=== PATIENT | male | born 1975 | race Caucasian/White ===

== ENCOUNTER → 2019-10-05 | Outpatient (REF) | payer OTHER ==
[2019-10-05 13:31] LABS: ALBUMIN 4.1 GM/DL (3.2-5.2); ALT/SGPT 38 U/L (12-78); BILIRUBIN,TOTAL 0.7 MG/DL (0.2-1.0); BLOOD UREA NITROGEN 11 MG/DL (7-18); CALCIUM LEVEL 9.6 MG/DL (8.5-10.1); CARBON DIOXIDE LEVEL 26 MEQ/L (21-32); CHLORIDE LEVEL 103 MEQ/L (98-107); CHOLESTEROL LEVEL 211 MG/DL (<200); CHOLESTEROL RISK RATIO 6.205 (<5); CREATININE FOR GFR 1.18 MG/DL (0.70-1.30); FREE T4 0.99 NG/DL (0.76-1.46); GLOMERULAR FILTRATION RATE > 60.0 (>60); GLUCOSE, FASTING 106 MG/DL (70-100); HDL CHOLESTEROL 34 MG/DL (>40); LDL CHOLESTEROL 133 MG/DL (<100); NON-HDL-C 177 MG/DL; POTASSIUM SERUM 4.8 MEQ/L (3.5-5.1); SODIUM LEVEL 135 MEQ/L (136-145); TOTAL 25(OH) VITAMIN D 17.8 NG/ML (30.0-100.0); TOTAL PROTEIN 8.6 GM/DL (6.4-8.2); TRIGLYCERIDES LEVEL 220 MG/DL (<150); URIC ACID 7.4 MG/DL (3.5-7.2)
== END ==
LOC: M SFHCPLAZ 09:41
PROVIDERS: ATTEND Nurse Practitioner Family
DX: F32.9 Major depressive disorder, single episode, unspecified (principal); E66.9 Obesity, unspecified; M25.50 Pain in unspecified joint

== ENCOUNTER → 2019-10-16 | Outpatient (REF) | payer OTHER | LOC: M LAB REF 17:13 | PROVIDERS: ATTEND Dermatology | DX: L98.6 Other infiltrative disorders of the skin and subcutaneous tissue (principal); L30.9 Dermatitis, unspecified ==

== ENCOUNTER → 2020-05-20 | Outpatient (REF) | payer OTHER ==
[2020-05-20 16:13] LABS: ALT/SGPT 48 U/L (12-78); BILIRUBIN,TOTAL 0.8 MG/DL (0.2-1.0); BLOOD UREA NITROGEN 13 MG/DL (7-18); CALCIUM LEVEL 9.9 MG/DL (8.5-10.1); CARBON DIOXIDE LEVEL 31 MEQ/L (21-32); CHLORIDE LEVEL 102 MEQ/L (98-107); CREATININE FOR GFR 1.31 MG/DL (0.70-1.30); GLOMERULAR FILTRATION RATE > 60.0 (>60); GLUCOSE, FASTING 88 MG/DL (70-100); POTASSIUM SERUM 4.6 MEQ/L (3.5-5.1); SODIUM LEVEL 135 MEQ/L (136-145); TOTAL PROTEIN 8.1 GM/DL (6.4-8.2); URIC ACID 6.8 MG/DL (3.5-7.2)
[2020-05-20 16:19] LABS: TOTAL 25(OH) VITAMIN D 27.4 NG/ML (30.0-100.0)
== END ==
LOC: M PLALAB 11:51
PROVIDERS: ATTEND Nurse Practitioner Family
DX: R73.01 Impaired fasting glucose (principal); E79.0 Hyperuricemia without signs of inflammatory arthritis and tophaceous disease; E55.9 Vitamin D deficiency, unspecified

== ENCOUNTER → 2020-12-10 | Outpatient (REF) | payer OTHER ==
[2020-12-10 14:04] LABS: ALBUMIN 4.3 GM/DL (3.2-5.2); ALT/SGPT 43 U/L (12-78); BILIRUBIN,TOTAL 0.7 MG/DL (0.2-1.0); BLOOD UREA NITROGEN 15 MG/DL (7-18); CALCIUM LEVEL 9.7 MG/DL (8.5-10.1); CARBON DIOXIDE LEVEL 29 MEQ/L (21-32); CHLORIDE LEVEL 105 MEQ/L (98-107); CHOLESTEROL LEVEL 252 MG/DL (<200); CHOLESTEROL RISK RATIO 5.142 (<5); CREATININE FOR GFR 1.18 MG/DL (0.70-1.30); FREE T4 0.97 NG/DL (0.76-1.46); GLOMERULAR FILTRATION RATE > 60.0 (>60); GLUCOSE, FASTING 85 MG/DL (70-100); HDL CHOLESTEROL 49 MG/DL (>40); LDL CHOLESTEROL 165 MG/DL (<100); NON-HDL-C 203 MG/DL; POTASSIUM SERUM 4.5 MEQ/L (3.5-5.1); SODIUM LEVEL 140 MEQ/L (136-145); TOTAL PROTEIN 8.4 GM/DL (6.4-8.2); TRIGLYCERIDES LEVEL 189 MG/DL (<150); URIC ACID 7.8 MG/DL (3.5-7.2)
[2020-12-10 14:06] LABS: TOTAL 25(OH) VITAMIN D 28.4 NG/ML (30.0-100.0)
== END ==
LOC: M PLALAB 11:16
PROVIDERS: ATTEND Nurse Practitioner Family
DX: E78.2 Mixed hyperlipidemia (principal); F32.9 Major depressive disorder, single episode, unspecified; E79.0 Hyperuricemia without signs of inflammatory arthritis and tophaceous disease; E55.9 Vitamin D deficiency, unspecified

== ENCOUNTER → 2021-05-07 | Outpatient (CLI) | payer OTHER ==
--- NOTE | 2021-05-08 15:14 | SLEEPCENT ---
DATE: 05/07/2021 ORDERED BY: Carl Knight MD Nocturnal polysomnography was performed for evaluation of sleep physiology. Eight hours and 45 minutes of data were reviewed. There were 367 minutes of sleep identified. Sleep latency was prolonged at 64.5 minutes. REM latency was also prolonged at 190 minutes. Sleep architecture showed poor progression, periods of wake and some fragmentation early in the study. Overall sleep efficiency was 70.7%. The electrocardiogram showed a sinus rhythm with an average heart rate of 68 beats per minute. EEG showed some minor alpha intrusion and normal waveforms for wake and sleep. There were 89 respiratory events identified of 10 seconds in duration or greater for an apnea-hypopnea index of 14.6. The events were obstructive, not exclusive to sleep stage, more frequent but not exclusive to the supine posture. Arousals from respiratory events occurred 2.8 times per hour, and oxygen desaturations were seen below 90%. There was some activity in the limb leads but arousals from limb events were few. IMPRESSION: Obstructive sleep apnea syndrome (G47.33). Apnea-hypopnea index 14.6. RECOMMENDATION: The patient should be encouraged to return to [facility] for [facility]. In the interim, alcohol and sedative avoidance should be practiced and caution exercised during the operation of motor vehicles.
== END ==
LOC: M SLEEP 20:00
PROVIDERS: ATTEND Family Medicine
DX: G47.33 Obstructive sleep apnea (adult) (pediatric) (principal)

== ENCOUNTER → 2021-07-16 | Outpatient (CLI) | payer OTHER | LOC: M SOG 11:08 | PROVIDERS: ATTEND Orthopaedic Surgery Adult Reconstructive Orthopaedic Surgery | DX: M25.569 Pain in unspecified knee (principal) ==

== ENCOUNTER → 2021-07-22 | Outpatient (CLI) | payer OTHER | LOC: M RAD 08:55 | PROVIDERS: ATTEND Orthopaedic Surgery Adult Reconstructive Orthopaedic Surgery | DX: M23.91 Unspecified internal derangement of right knee (principal) ==

== ENCOUNTER → 2021-07-23 | Outpatient (CLI) | payer OTHER | LOC: M SOG 11:23 | PROVIDERS: ATTEND Orthopaedic Surgery | DX: M54.50 Low back pain, unspecified (principal) ==

== ENCOUNTER → 2021-08-08 | Outpatient (CLI) | payer OTHER | LOC: M PLAIMG 11:17 | PROVIDERS: ATTEND Family Medicine | DX: M54.16 Radiculopathy, lumbar region (principal) ==

== ENCOUNTER → 2021-08-20 | Outpatient (CLI) | payer OTHER | LOC: M SOG 08:12 | PROVIDERS: ATTEND Orthopaedic Surgery Hand Surgery | DX: M25.751 Osteophyte, right hip (principal) ==

== ENCOUNTER → 2021-09-02 | Outpatient (CLI) | payer OTHER | LOC: M PLAIMG 12:37 | PROVIDERS: ATTEND Orthopaedic Surgery Hand Surgery | DX: M25.571 Pain in right ankle and joints of right foot (principal) ==

== ENCOUNTER → 2021-11-04 | Outpatient (REF) | payer OTHER ==
[2021-11-04 13:17] LABS: APPEARANCE, URINE CLEAR (CLEAR); BACTERIA, URINE AUTO NEGATIVE (NEGATIVE); BILIRUBIN, URINE AUTO NEGATIVE (NEGATIVE); BLOOD, URINE BLOOD 1+ (NEGATIVE); COLOR, URINE YELLOW (YELLOW); GLUCOSE, URINE (UA) AUTO NEGATIVE (NEGATIVE); KETONE, URINE AUTO NEGATIVE (NEGATIVE); LEUKOCYTE ESTERASE, URINE AUTO NEGATIVE (NEGATIVE); MUCUS, URINE SMALL (NEGATIVE); NITRITE, URINE AUTO NEGATIVE (NEGATIVE); PROTEIN, URINE AUTO NEGATIVE (NEGATIVE); RBC, URINE AUTO 0 /HPF (0-3); SPECIFIC GRAVITY URINE AUTO 1.017 (1.002-1.035); SQUAMOUS EPITHELIAL CELL UR AU 0 /HPF (0-6); UROBILINOGEN, URINE AUTO 0.2 mg/dL (0.0-2.0); WBC, URINE AUTO 0 /HPF (0-3)
[2021-11-04 13:18] LABS: BASO # 0.1 10^3/uL (0.0-0.2); BASO % 1.3 % (0.0-1.0); EOS # 0.3 10^3/uL (0.0-0.5); EOS % 5.4 % (0.0-3.0); HEMATOCRIT 47.9 % (42.0-52.0); HEMOGLOBIN 16.4 g/dl (13.5-17.5); LYMPH # 1.9 10^3/uL (1.5-5.0); LYMPH % 30.5 % (24.0-44.0); MEAN CORPUSCULAR HEMOGLOBIN 31.2 pg (27.0-33.0); MEAN CORPUSCULAR HGB CONC 34.2 g/dl (32.0-36.5); MEAN CORPUSCULAR VOLUME 91.2 fl (80.0-96.0); MONO # 0.6 10^3/uL (0.0-0.8); MONO % 10.2 % (2.0-8.0); NEUTROPHILS # 3.3 10^3/uL (1.5-8.5); NEUTROPHILS % 52.3 % (36.0-66.0); PLATELET COUNT, AUTOMATED 246 10^3/uL (150-450); RED BLOOD COUNT 5.25 10^6/uL (4.30-6.10); WHITE BLOOD COUNT 6.3 10^3/uL (4.0-10.0)
[2021-11-04 13:43] LABS: TOTAL PROTEIN,RANDOM URINE 9.9 MG/DL (0.0-12.0)
[2021-11-04 13:47] LABS: ALBUMIN 4.2 GM/DL (3.2-5.2); ALT/SGPT 89 U/L (12-78); BILIRUBIN,TOTAL 0.4 MG/DL (0.2-1.0); BLOOD UREA NITROGEN 15 MG/DL (7-18); C REACTIVE PROTEIN QUANTITATIV 0.41 MG/DL (0.00-0.30); CALCIUM LEVEL 10.1 MG/DL (8.5-10.1); CARBON DIOXIDE LEVEL 26 MEQ/L (21-32); CHLORIDE LEVEL 106 MEQ/L (98-107); COMPLEMENT C3 113 MG/DL (90-180); COMPLEMENT C4 28 MG/DL (10-40); CREATININE FOR GFR 1.07 MG/DL (0.70-1.30); GLOMERULAR FILTRATION RATE > 60.0 (>60); GLUCOSE, FASTING 100 MG/DL (70-100); POTASSIUM SERUM 4.1 MEQ/L (3.5-5.1); SODIUM LEVEL 139 MEQ/L (136-145); TOTAL PROTEIN 8.4 GM/DL (6.4-8.2); URIC ACID 6.2 MG/DL (3.5-7.2)
[2021-11-04 13:52] LABS: ERYTHROCYTE SEDIMENTATION RATE 10 mm/hr (0-15)
[2021-11-04 13:54] LABS: TOTAL 25(OH) VITAMIN D 45.7 NG/ML (30.0-100.0)
== END ==
LOC: M SFHCRHEU 09:14
PROVIDERS: ATTEND Internal Medicine Rheumatology
DX: R76.8 Other specified abnormal immunological findings in serum (principal); M25.50 Pain in unspecified joint; R21 Rash and other nonspecific skin eruption; M1A.49X0 Other secondary chronic gout, multiple sites, without tophus (tophi)

== ENCOUNTER → 2021-12-29 | Outpatient (CLI) | payer OTHER ==
[2021-12-29 19:03] LABS: FREE T4 0.84 NG/DL (0.76-1.46); THYROID STIMULATING HORMONE 1.97 uIU/ML (0.358-3.740)
[2021-12-29 19:50] LABS: TOTAL 25(OH) VITAMIN D 94.6 NG/ML (30.0-100.0)
[2021-12-29 19:51] LABS: FOLATE 9.3 NG/ML
== END ==
LOC: M PLALAB 12:28
PROVIDERS: ATTEND Psychiatry & Neurology Neurology
DX: R51.9 Headache, unspecified (principal)

== ENCOUNTER → 2021-12-29 | Outpatient (CLI) | payer OTHER | LOC: M PLAIMG 12:59 | PROVIDERS: ATTEND Internal Medicine Rheumatology | DX: R76.8 Other specified abnormal immunological findings in serum (principal); M25.50 Pain in unspecified joint; R21 Rash and other nonspecific skin eruption; M1A.49X0 Other secondary chronic gout, multiple sites, without tophus (tophi); Z79.899 Other long term (current) drug therapy ==

== ENCOUNTER → 2022-02-04 | Outpatient (CLI) | payer OTHER | LOC: M PAIN 14:30 | PROVIDERS: ATTEND Nurse Practitioner Family | DX: M51.16 Intervertebral disc disorders with radiculopathy, lumbar region (principal); F32.A Depression, unspecified; F41.9 Anxiety disorder, unspecified; F43.10 Post-traumatic stress disorder, unspecified; E29.1 Testicular hypofunction; Z87.820 Personal history of traumatic brain injury; L93.0 Discoid lupus erythematosus; M10.9 Gout, unspecified; E78.00 Pure hypercholesterolemia, unspecified; M25.579 Pain in unspecified ankle and joints of unspecified foot; M25.569 Pain in unspecified knee; M54.2 Cervicalgia; Z87.891 Personal history of nicotine dependence; Z79.891 Long term (current) use of opiate analgesic; Z79.899 Other long term (current) drug therapy; Z91.030 Bee allergy status ==

== ENCOUNTER → 2022-06-07 | Outpatient (CLI) | payer OTHER | LOC: M LABSMTC 11:10 | PROVIDERS: ATTEND Anesthesiology | DX: Z11.52 Encounter for screening for COVID-19 (principal) ==

== ENCOUNTER → 2022-06-11 | Outpatient (CLI) | payer OTHER ==
[~2022-06-11] MED LIST: ISOVUE-M 300 61% 15ML VIAL As Ordered ONE; LIDOCAINE 1% SDV 30ML VIAL As Ordered ONE; diazePAM 5MG TABLET As Ordered ONE; methylPREDNISolone SUSP 40MG/ML 1ML VIAL (DEPO MEDROL) As Ordered ONE
== END ==
LOC: M PAIN 08:15
PROVIDERS: ATTEND Anesthesiology
DX: M51.16 Intervertebral disc disorders with radiculopathy, lumbar region (principal); G89.29 Other chronic pain; G47.30 Sleep apnea, unspecified; Z86.59 Personal history of other mental and behavioral disorders; Z87.820 Personal history of traumatic brain injury; Z87.891 Personal history of nicotine dependence; Z91.030 Bee allergy status; Z79.899 Other long term (current) drug therapy
CPT/HCPCS: 62323; J1030; Q9967

== ENCOUNTER → 2022-07-16 | Outpatient (CLI) | payer OTHER | LOC: M PAIN 11:15 | PROVIDERS: ATTEND Nurse Practitioner Family | DX: G89.29 Other chronic pain (principal); M47.816 Spondylosis without myelopathy or radiculopathy, lumbar region; F32.A Depression, unspecified; F41.9 Anxiety disorder, unspecified; F43.10 Post-traumatic stress disorder, unspecified; E29.1 Testicular hypofunction; Z87.820 Personal history of traumatic brain injury; M54.2 Cervicalgia; R51.9 Headache, unspecified; L93.0 Discoid lupus erythematosus; M54.50 Low back pain, unspecified; M10.9 Gout, unspecified; E78.00 Pure hypercholesterolemia, unspecified; M25.569 Pain in unspecified knee; M25.579 Pain in unspecified ankle and joints of unspecified foot; Z87.891 Personal history of nicotine dependence; Z79.899 Other long term (current) drug therapy; Z91.030 Bee allergy status ==

== ENCOUNTER → 2022-07-22 | Outpatient (CLI) | payer OTHER | LOC: M RAD 11:52 | PROVIDERS: ATTEND Dermatology | DX: L92.3 Foreign body granuloma of the skin and subcutaneous tissue (principal) ==

== ENCOUNTER → 2022-11-02 | Outpatient (CLI) | payer OTHER ==
[~2022-11-02] MED LIST changes: +BUPIVACAINE HCL 0.25% 30ML VIAL As Ordered ONE; -diazePAM 5MG TABLET As Ordered ONE; -methylPREDNISolone SUSP 40MG/ML 1ML VIAL (DEPO MEDROL) As Ordered ONE
== END ==
LOC: M PAIN 09:00
PROVIDERS: ATTEND Anesthesiology
DX: M47.816 Spondylosis without myelopathy or radiculopathy, lumbar region (principal); M47.817 Spondylosis without myelopathy or radiculopathy, lumbosacral region; F32.A Depression, unspecified; F41.9 Anxiety disorder, unspecified; F43.10 Post-traumatic stress disorder, unspecified; E29.1 Testicular hypofunction; Z87.820 Personal history of traumatic brain injury; L93.0 Discoid lupus erythematosus; M54.50 Low back pain, unspecified; M10.9 Gout, unspecified; E78.00 Pure hypercholesterolemia, unspecified; Z87.891 Personal history of nicotine dependence; Z79.891 Long term (current) use of opiate analgesic; Z79.899 Other long term (current) drug therapy; Z91.030 Bee allergy status; J30.81 Allergic rhinitis due to animal (cat) (dog) hair and dander; J30.89 Other allergic rhinitis
CPT/HCPCS: 64493; 64494; Q9967

== ENCOUNTER → 2023-01-08 | Outpatient (REF) | payer OTHER | LOC: CANPREREF → M SFHCDERM 17:24 | PROVIDERS: ATTEND Dermatology | DX: D48.9 Neoplasm of uncertain behavior, unspecified (principal) ==

== ENCOUNTER → 2023-01-19 | Outpatient (CLI) | payer OTHER ==
[~2023-01-19] MED LIST changes: -BUPIVACAINE HCL 0.25% 30ML VIAL As Ordered ONE
== END ==
LOC: M PAIN 13:00
PROVIDERS: ATTEND Anesthesiology
DX: M43.06 Spondylolysis, lumbar region (principal); F32.A Depression, unspecified; F41.9 Anxiety disorder, unspecified; F43.10 Post-traumatic stress disorder, unspecified; M47.816 Spondylosis without myelopathy or radiculopathy, lumbar region; E29.1 Testicular hypofunction; Z87.820 Personal history of traumatic brain injury; L93.0 Discoid lupus erythematosus; M54.50 Low back pain, unspecified; M10.9 Gout, unspecified; E78.00 Pure hypercholesterolemia, unspecified; Z87.891 Personal history of nicotine dependence; Z91.040 Latex allergy status; J30.81 Allergic rhinitis due to animal (cat) (dog) hair and dander; J30.89 Other allergic rhinitis; Z79.891 Long term (current) use of opiate analgesic; Z79.899 Other long term (current) drug therapy
CPT/HCPCS: 64493; 64494; J0665; Q9967

== ENCOUNTER → 2023-01-27 | Outpatient (CLI) | payer OTHER | LOC: M PAIN 14:30 | PROVIDERS: ATTEND Anesthesiology | DX: M99.03 Segmental and somatic dysfunction of lumbar region (principal); F32.A Depression, unspecified; F41.9 Anxiety disorder, unspecified; F43.10 Post-traumatic stress disorder, unspecified; E29.1 Testicular hypofunction; L93.0 Discoid lupus erythematosus; J30.89 Other allergic rhinitis; J30.81 Allergic rhinitis due to animal (cat) (dog) hair and dander; M54.50 Low back pain, unspecified; M10.9 Gout, unspecified; E78.00 Pure hypercholesterolemia, unspecified; M54.2 Cervicalgia; R51.9 Headache, unspecified; Z87.891 Personal history of nicotine dependence; Z79.891 Long term (current) use of opiate analgesic; Z87.820 Personal history of traumatic brain injury; Z91.030 Bee allergy status ==

== ENCOUNTER → 2023-02-15 | Outpatient (CLI) | payer OTHER | LOC: M SOG 08:02 | PROVIDERS: ATTEND Orthopaedic Surgery | DX: M25.561 Pain in right knee (principal); M25.562 Pain in left knee ==

== ENCOUNTER → 2023-07-27 | Outpatient (CLI) | payer OTHER | LOC: M PAIN 11:30 | PROVIDERS: ATTEND Nurse Practitioner Family | DX: M47.816 Spondylosis without myelopathy or radiculopathy, lumbar region (principal); M47.817 Spondylosis without myelopathy or radiculopathy, lumbosacral region; G89.29 Other chronic pain; F32.A Depression, unspecified; F41.9 Anxiety disorder, unspecified; F43.10 Post-traumatic stress disorder, unspecified; E29.1 Testicular hypofunction; Z87.820 Personal history of traumatic brain injury; M10.9 Gout, unspecified; E78.00 Pure hypercholesterolemia, unspecified; G47.33 Obstructive sleep apnea (adult) (pediatric); L93.0 Discoid lupus erythematosus; Z87.891 Personal history of nicotine dependence; Z79.891 Long term (current) use of opiate analgesic; Z79.899 Other long term (current) drug therapy; Z91.030 Bee allergy status ==

== ENCOUNTER 2023-08-16 09:10 | Day surgery (SDC) | payer OTHER ==
[~2023-08-16] VITALS: Ht 180.3 cm; Wt 116.0 kg
[~2023-08-16 09:10] MED LIST changes: +CETI-24 PO; +EPIN0.3I11; +ERGO500029 PO; +FAMO40TA3 PO; -ISOVUE-M 300 61% 15ML VIAL As Ordered ONE; -LIDOCAINE 1% SDV 30ML VIAL As Ordered ONE; +LIDOCAINE 2% 100MG/5ML SDV (FOR ANES.) As Ordered ONE; +SUMA100T2 PO; +TEST75GE; +TOPI100T9 PO; +VENL75CA47 PO; +propofoL 200 MG/20 ML VIAL As Ordered ONE
[2023-08-16] MEDS: NS 1,000 ML IV ONE (09:34)
[2023-08-16 10:46] VITALS: TEMP 97.4
[2023-08-16 11:12] VITALS: BP 115/68; O2SAT 99
== END 2023-08-16 11:24 | disposition home or self-care (01) ==
LOC: M OPP 09:10
PROVIDERS: ATTEND Internal Medicine Gastroenterology
DX: Z12.11 Encounter for screening for malignant neoplasm of colon (principal); D12.6 Benign neoplasm of colon, unspecified; K64.4 Residual hemorrhoidal skin tags; K64.8 Other hemorrhoids; G47.30 Sleep apnea, unspecified; Z99.89 Dependence on other enabling machines and devices; Z79.899 Other long term (current) drug therapy; Z91.030 Bee allergy status

== ENCOUNTER → 2024-02-18 | Outpatient (CLI) | payer OTHER ==
[~2024-02-18] MED LIST changes: -LIDOCAINE 2% 100MG/5ML SDV (FOR ANES.) As Ordered ONE; -propofoL 200 MG/20 ML VIAL As Ordered ONE
== END ==
LOC: M PAIN 17:00
PROVIDERS: ATTEND Nurse Practitioner Family
DX: M47.816 Spondylosis without myelopathy or radiculopathy, lumbar region (principal); M47.817 Spondylosis without myelopathy or radiculopathy, lumbosacral region; G89.29 Other chronic pain; F32.A Depression, unspecified; F41.9 Anxiety disorder, unspecified; F43.10 Post-traumatic stress disorder, unspecified; Z87.820 Personal history of traumatic brain injury; R51.9 Headache, unspecified; M10.9 Gout, unspecified; E78.00 Pure hypercholesterolemia, unspecified; G47.33 Obstructive sleep apnea (adult) (pediatric); L93.0 Discoid lupus erythematosus; E29.1 Testicular hypofunction; Z87.891 Personal history of nicotine dependence; Z79.891 Long term (current) use of opiate analgesic; Z79.899 Other long term (current) drug therapy; Z91.030 Bee allergy status